=== PATIENT | female | born 1995 | race Caucasian/White ===

== ENCOUNTER → 2021-03-30 | Outpatient (REF) | payer OTHER ==
[2021-03-30 12:25] LABS: BASO # 0.1 10^3/uL (0.0-0.2); BASO % 0.9 % (0.0-1.0); EOS # 0.2 10^3/uL (0.0-0.5); EOS % 3.9 % (0.0-3.0); HEMATOCRIT 43.5 % (36.0-47.0); HEMOGLOBIN 14.5 g/dl (12.0-15.5); LYMPH # 2.2 10^3/uL (1.5-5.0); LYMPH % 37.9 % (24.0-44.0); MEAN CORPUSCULAR HEMOGLOBIN 30.3 pg (27.0-33.0); MEAN CORPUSCULAR HGB CONC 33.3 g/dl (32.0-36.5); MEAN CORPUSCULAR VOLUME 90.8 fl (80.0-96.0); MONO # 0.4 10^3/uL (0.0-0.8); MONO % 6.5 % (2.0-8.0); NEUTROPHILS % 50.6 % (36.0-66.0); PLATELET COUNT, AUTOMATED 210 10^3/uL (150-450); RED BLOOD COUNT 4.79 10^6/uL (4.00-5.40); WHITE BLOOD COUNT 5.9 10^3/uL (4.0-10.0)
[2021-03-30 13:03] LABS: ALBUMIN 4.1 GM/DL (3.2-5.2); ALT/SGPT 39 U/L (12-78); BILIRUBIN,TOTAL 0.5 MG/DL (0.2-1.0); BLOOD UREA NITROGEN 10 MG/DL (7-18); CALCIUM LEVEL 9.2 MG/DL (8.5-10.1); CARBON DIOXIDE LEVEL 29 MEQ/L (21-32); CHLORIDE LEVEL 104 MEQ/L (98-107); CREATININE FOR GFR 0.72 MG/DL (0.55-1.30); FREE T4 1.02 NG/DL (0.76-1.46); GLOMERULAR FILTRATION RATE > 60.0 (>60); GLUCOSE, FASTING 81 MG/DL (70-100); POTASSIUM SERUM 4.1 MEQ/L (3.5-5.1); SODIUM LEVEL 139 MEQ/L (136-145); TOTAL PROTEIN 7.7 GM/DL (6.4-8.2)
== END ==
LOC: M WUC 12:03
PROVIDERS: ATTEND Student in an Organized Health Care Education/Training Program
DX: R53.83 Other fatigue (principal)

== ENCOUNTER → 2022-01-03 | Outpatient (CLI) | payer OTHER ==
[2022-01-03 15:08] LABS: BASO # 0.1 10^3/uL (0.0-0.2); BASO % 1.5 % (0.0-1.0); EOS # 0.1 10^3/uL (0.0-0.5); EOS % 3.6 % (0.0-3.0); HEMATOCRIT 40.2 % (36.0-47.0); HEMOGLOBIN 13.4 g/dl (12.0-15.5); LYMPH # 1.6 10^3/uL (1.5-5.0); LYMPH % 41.5 % (24.0-44.0); MEAN CORPUSCULAR HEMOGLOBIN 30.5 pg (27.0-33.0); MEAN CORPUSCULAR HGB CONC 33.3 g/dl (32.0-36.5); MEAN CORPUSCULAR VOLUME 91.4 fl (80.0-96.0); MONO # 0.3 10^3/uL (0.0-0.8); MONO % 7.9 % (2.0-8.0); NEUTROPHILS # 1.8 10^3/uL (1.5-8.5); NEUTROPHILS % 45.2 % (36.0-66.0); PLATELET COUNT, AUTOMATED 183 10^3/uL (150-450); WHITE BLOOD COUNT 3.9 10^3/uL (4.0-10.0)
[2022-01-03 15:22] LABS: ALBUMIN 4.1 G/DL (3.2-5.2); CARBON DIOXIDE LEVEL 28 MMOL/L (20-31); CHLORIDE LEVEL 103 MMOL/L (98-107); POTASSIUM SERUM 4.3 MMOL/L (3.5-5.1); SODIUM LEVEL 139 MMOL/L (136-145)
[2022-01-03 15:26] LABS: FREE T4 1.13 NG/DL (0.89-1.76); THYROID STIMULATING HORMONE 1.025 uIU/ML (0.55-4.78)
[2022-01-03 15:27] LABS: BLOOD UREA NITROGEN 12 MG/DL (9-23); TRIGLYCERIDES LEVEL 38 MG/DL (<150)
[2022-01-03 15:28] LABS: BILIRUBIN,TOTAL 0.6 MG/DL (0.3-1.2); CALCIUM LEVEL 9.2 MG/DL (8.5-10.1); GLUCOSE, FASTING 87 MG/DL (60-100); TOTAL 25(OH) VITAMIN D 30.2 NG/ML (20.0-100.0)
[2022-01-03 15:29] LABS: ALT/SGPT 13 U/L (7.0-40); TOTAL PROTEIN 6.8 G/DL (5.7-8.2)
[2022-01-03 15:30] LABS: CHOLESTEROL LEVEL 151 MG/DL (<200); CHOLESTEROL RISK RATIO 2.47 (<5); CREATININE FOR GFR 0.74 MG/DL (0.55-1.30); GLOMERULAR FILTRATION RATE > 60.0 (>60); LDL CHOLESTEROL 82.4 MG/DL (<100); NON-HDL-C 90 MG/DL
== END ==
LOC: M PLALAB 10:10
PROVIDERS: ATTEND Family Medicine
DX: Z13.220 Encounter for screening for lipoid disorders (principal)

== ENCOUNTER → 2022-03-21 | Outpatient (CLI) | payer OTHER ==
[2022-03-21 17:36] LABS: HEMATOCRIT 38.8 % (36.0-47.0); HEMOGLOBIN 13.2 g/dl (12.0-15.5); MEAN CORPUSCULAR HEMOGLOBIN 30.3 pg (27.0-33.0); MEAN CORPUSCULAR VOLUME 89.2 fl (80.0-96.0); PLATELET COUNT, AUTOMATED 206 10^3/uL (150-450); RED BLOOD COUNT 4.35 10^6/uL (4.00-5.40); WHITE BLOOD COUNT 9.5 10^3/uL (4.0-10.0)
[2022-03-21 18:24] LABS: HIV 1&2 SCREEN CENTAUR NEGATIVE (NEGATIVE)
[2022-03-21 19:15] LABS: GC DNA AMPLIFICATION NEGATIVE (NEGATIVE)
== END ==
LOC: M PLALAB 15:21
PROVIDERS: ATTEND Advanced Practice Midwife
DX: Z34.01 Encounter for supervision of normal first pregnancy, first trimester (principal)

== ENCOUNTER → 2022-04-18 | Outpatient (CLI) | payer OTHER | LOC: M PLALAB 14:56 | PROVIDERS: ATTEND Obstetrics & Gynecology | DX: O26.891 Other specified pregnancy related conditions, first trimester (principal) ==

== ENCOUNTER → 2022-06-22 | Outpatient (CLI) | payer OTHER | LOC: M WHC 13:50 | PROVIDERS: ATTEND Obstetrics & Gynecology | DX: Z34.92 Encounter for supervision of normal pregnancy, unspecified, second trimester (principal); Z3A.20 20 weeks gestation of pregnancy ==

== ENCOUNTER → 2022-08-17 | Outpatient (CLI) | payer OTHER | LOC: M WHC 12:06 | PROVIDERS: ATTEND Obstetrics & Gynecology | DX: Z36.2 Encounter for other antenatal screening follow-up (principal) ==

== ENCOUNTER → 2022-08-17 | Outpatient (CLI) | payer OTHER ==
[2022-08-17 15:38] LABS: HEMATOCRIT 39.7 % (36.0-47.0); HEMOGLOBIN 13.2 g/dl (12.0-15.5); MEAN CORPUSCULAR HEMOGLOBIN 30.2 pg (27.0-33.0); MEAN CORPUSCULAR HGB CONC 33.2 g/dl (32.0-36.5); MEAN CORPUSCULAR VOLUME 90.8 fl (80.0-96.0); PLATELET COUNT, AUTOMATED 173 10^3/uL (150-450); RED BLOOD COUNT 4.37 10^6/uL (4.00-5.40); WHITE BLOOD COUNT 9.2 10^3/uL (4.0-10.0)
[2022-08-17 17:00] LABS: GC DNA AMPLIFICATION NEGATIVE (NEGATIVE)
== END ==
LOC: M PLALAB 12:44
PROVIDERS: ATTEND Family Medicine
DX: Z34.92 Encounter for supervision of normal pregnancy, unspecified, second trimester (principal)

== ENCOUNTER → 2022-09-06 | Outpatient (CLI) | payer OTHER | LOC: M LAB 07:36 | PROVIDERS: ATTEND Advanced Practice Midwife | DX: O99.810 Abnormal glucose complicating pregnancy (principal); Z3A.00 Weeks of gestation of pregnancy not specified ==

== ENCOUNTER 2022-10-08 15:06 | Outpatient (CLI) | payer OTHER ==
[~2022-10-08] VITALS: Ht 172.7 cm; Wt 80.9 kg
[2022-10-08 15:32] VITALS: BP 114/65
[2022-10-08] MEDS ORDERED: PRENTAB9 PO (15:33)
[2022-10-08] MEDS ORDERED: HOME MED LIST COMPLETE! XX SCH (15:45)
== END 2022-10-08 16:23 | disposition home or self-care (01) ==
LOC: M LDO 15:06
PROVIDERS: ATTEND Obstetrics & Gynecology
DX: O26.893 Other specified pregnancy related conditions, third trimester (principal); R42 Dizziness and giddiness; Z3A.35 35 weeks gestation of pregnancy
CPT/HCPCS: 59025; G0463

== ENCOUNTER → 2022-10-11 | Outpatient (REF) | payer OTHER ==
[~2022-10-11] MED LIST: PRENTAB9 PO
== END ==
LOC: M PLALAB 14:46
PROVIDERS: ATTEND Advanced Practice Midwife
DX: Z34.80 Encounter for supervision of other normal pregnancy, unspecified trimester (principal)

== ENCOUNTER → 2022-10-18 | Outpatient (CLI) | payer OTHER ==
[2022-10-18 18:44] LABS: HEMATOCRIT 38.4 % (36.0-47.0); HEMOGLOBIN 12.7 g/dl (12.0-15.5); MEAN CORPUSCULAR HEMOGLOBIN 30.1 pg (27.0-33.0); MEAN CORPUSCULAR HGB CONC 33.1 g/dl (32.0-36.5); PLATELET COUNT, AUTOMATED 159 10^3/uL (150-450); RED BLOOD COUNT 4.22 10^6/uL (4.00-5.40); WHITE BLOOD COUNT 7.1 10^3/uL (4.0-10.0)
[2022-10-18 19:04] LABS: LDH LACTATE DEHYDROGENASE 156 U/L (120-246)
[2022-10-18 19:06] LABS: ALT/SGPT 15 U/L (7.0-40); AST/SGOT 9 U/L (<34); BILIRUBIN,TOTAL 0.4 MG/DL (0.3-1.2); CREATININE FOR GFR 0.58 MG/DL (0.55-1.30); GLOMERULAR FILTRATION RATE > 60.0 (>60)
[2022-10-18 20:45] LABS: CREATININE,RANDOM URINE 14.8 MG/DL
[2022-10-18 20:47] LABS: TOTAL PROTEIN,RANDOM URINE < 6.0 MG/DL (0.0-14.0)
== END ==
LOC: M PLALAB 15:59
PROVIDERS: ATTEND Advanced Practice Midwife
DX: Z34.03 Encounter for supervision of normal first pregnancy, third trimester (principal)

== ENCOUNTER → 2022-10-19 | Outpatient (CLI) | payer OTHER | LOC: M WHC 09:29 | PROVIDERS: ATTEND Advanced Practice Midwife | DX: Z34.03 Encounter for supervision of normal first pregnancy, third trimester (principal) ==

== ENCOUNTER 2022-10-21 14:58 | Outpatient (CLI) | payer OTHER ==
[~2022-10-21] VITALS: Ht 172.7 cm; Wt 79.2 kg
[2022-10-21 15:23] VITALS: BP 123/80
[2022-10-21] MEDS ORDERED: HOME MED LIST COMPLETE! XX SCH (15:30)
== END 2022-10-21 16:08 | disposition home or self-care (01) ==
LOC: M LDO 14:58
PROVIDERS: ATTEND Specialist
DX: O26.893 Other specified pregnancy related conditions, third trimester (principal); N89.8 Other specified noninflammatory disorders of vagina; Z3A.37 37 weeks gestation of pregnancy
CPT/HCPCS: 59025; G0463

== ENCOUNTER 2022-11-14 00:17 | Inpatient (IN) | payer OTHER ==
[~2022-11-14] VITALS: Ht 172.7 cm; Wt 80.8 kg
[2022-11-14] VITALS (36 sets, daily range): BP systolic 108–146; BP diastolic 57–83; TEMP 98.2–98.3; O2SAT 97–99
[2022-11-14] MEDS ORDERED: ONDANSETRON 4MG 2ML VIAL IV PRN ×2 (04:35→05:55)
[2022-11-14 05:04] LABS: HEMATOCRIT 38.6 % (36.0-47.0); HEMOGLOBIN 13.2 g/dl (12.0-15.5); MEAN CORPUSCULAR HEMOGLOBIN 30.6 pg (27.0-33.0); MEAN CORPUSCULAR HGB CONC 34.2 g/dl (32.0-36.5); MEAN CORPUSCULAR VOLUME 89.4 fl (80.0-96.0); PLATELET COUNT, AUTOMATED 164 10^3/uL (150-450); RED BLOOD COUNT 4.32 10^6/uL (4.00-5.40); WHITE BLOOD COUNT 11.2 10^3/uL (4.0-10.0)
[2022-11-14] MEDS ORDERED: EPIDURAL/PCA KEYS XX PRN (05:55)
[2022-11-14] MEDS ORDERED: diphenhydrAMINE 50MG/ML VIAL IV PRN (05:55)
[2022-11-14] MEDS ORDERED: LR 500 ML IV PRN (05:55)
[2022-11-14] MEDS ORDERED: ePHEDrine SULFATE 25 MG/5 ML(5MG/ML) SYRINGE IVP PRN (05:55)
[2022-11-14] MEDS ORDERED: NALOXONE INJ 0.4MG/1ML VIAL IV PRN (05:55)
[2022-11-14] MEDS ORDERED: FENTANYL/ROPIVACAINE/NACL BAG 100 ML EPIDURAL SCH (05:55)
[2022-11-14] MEDS ORDERED: LACTATED RINGER'S 1000 ML IV STA (06:46)
[2022-11-14] MEDS ORDERED: OXYTOCIN DRIP 30 UNITS in IV 1 EA IV PRN (06:50)
[2022-11-14] MEDS ORDERED: TRANEXAMIC ACID INJection 1,000 MG in NS 100 ML IV PRN (06:50)
[2022-11-14] MEDS ORDERED: CARBOPROST TROMETHAMINE 250 MCG/ML AMP IM PRN (06:50)
[2022-11-14] MEDS ORDERED: LIDOCAINE 1% MDV 20ML VIAL INFIL PRN (06:50)
[2022-11-14] MEDS ORDERED: OXYTOCIN INJ 10UNITS/ML 1ML VIAL IM PRN (06:50)
[2022-11-14] MEDS ORDERED: METHYLERGONOVINE MALEATE 0.2MG/ML 1ML VIAL IM PRN (06:50)
[2022-11-14] MEDS ORDERED: OMEGCAP9 PO (07:50)
[2022-11-14] MEDS ORDERED: PROB250C PO (07:50)
[2022-11-14] MEDS ORDERED: CHOL650T PO (07:50)
[2022-11-14] MEDS ORDERED: HOME MED LIST COMPLETE! XX SCH (07:55)
[2022-11-14] MEDS ORDERED: LR 1,000 ML IV SCH (08:50)
[2022-11-14] MEDS: PRENATAL VITAMINS CHEWABLE TABLET PO SCH (09:00)
[2022-11-14] MEDS ORDERED: ANUSOL HC CREAM 30GM TOP PRN (12:45)
[2022-11-14] MEDS ORDERED: RHOGAM 300MCG (1500IU) INJ IM SCH (12:45)
[2022-11-14] MEDS ORDERED: METHYLERGONOVINE MALEATE 0.2 MG TAB PO PRN (12:45)
[2022-11-14] MEDS ORDERED: DOCUSATE SODIUM 100MG CAPSULE PO PRN (12:45)
[2022-11-14] MEDS ORDERED: DIBUCAINE 1% OINTMENT 30GM TOP PRN (12:45)
[2022-11-14] MEDS ORDERED: ACETAMINOPHEN TAB 650MG DOSE (2X325MG) PO PRN (12:45)
[2022-11-14] MEDS ORDERED: OXYTOCIN DRIP 30 UNITS in IV 1 EA IV SCH (12:45)
[2022-11-14] MEDS ORDERED: IBUPROFEN 800 MG TAB PO PRN (12:45)
[2022-11-14] MEDS ORDERED: ACETAMINOPHEN 500 MG TAB PO PRN (12:45)
[2022-11-14] MEDS ORDERED: MOM 30ML SUSPENSION UDC PO PRN (12:45)
[2022-11-14] MEDS: IBUPROFEN 600MG TAB PO PRN ×2 (14:11→23:49)
[2022-11-15 06:00] VITALS: BP 114/56; TEMP 97.8; O2SAT 98
[2022-11-15] MEDS: PRENATAL VITAMINS CHEWABLE TABLET PO SCH (09:38)
[2022-11-15] MEDS: IBUPROFEN 600MG TAB PO PRN ×2 (10:44→20:52)
[2022-11-15 17:55] VITALS: BP 136/84; TEMP 97.3; O2SAT 98
[2022-11-16 06:00] VITALS: BP 122/75; TEMP 97.3; O2SAT 98
[2022-11-16] MEDS ORDERED: MEASLES,MUMPS,RUBELLA VACCINE INJ (MMR-II) SC.IMMUN ONE (09:00)
[2022-11-16] MEDS ORDERED: ACET-683 PO (09:09)
[2022-11-16] MEDS ORDERED: COLA100C5 PO (09:09)
[2022-11-16] MEDS ORDERED: IBUP-1022 PO (09:09)
== END 2022-11-16 12:34 | disposition home or self-care (01) | DRG 807 ==
LOC: M LDI 00:17 → M OBS 14:38
PROVIDERS: ADMIT Advanced Practice Midwife; ATTEND Obstetrics & Gynecology
PROC: 10E0XZZ Delivery of Products of Conception, External Approach (ICD-10-PCS; principal; 2022-11-14)
DX: O48.0 Post-term pregnancy (principal); Z37.0 Single live birth; Z3A.41 41 weeks gestation of pregnancy

== ENCOUNTER → 2023-03-21 | Outpatient (REF) | payer OTHER ==
[~2023-03-21] MED LIST changes: +ACET-683 PO; +CHOL650T PO; +COLA100C5 PO; +IBUP-1022 PO; +OMEGCAP9 PO; +PROB250C PO
== END ==
LOC: M SFHCWAGY 15:44
PROVIDERS: ATTEND Nurse Practitioner Family
DX: Z12.4 Encounter for screening for malignant neoplasm of cervix (principal)